=== PATIENT | male | born 1950 | race Caucasian/White ===

== ENCOUNTER 2017-11-05 13:06 | Emergency (ER) | payer MEDICARE, OTHER ==
[2017-11-05] MEDS ORDERED: Ondansetron 4 MG/2 ML SDV IVPUSH ONE (14:32)
[2017-11-05] MEDS ORDERED: Sodium Chloride 0.9% 10 ML Syringe FLUSH PRN ×2 (14:32→16:00)
[2017-11-05] MEDS ORDERED: Morphine 2 MG/ML Syringe IVPUSH ONE (14:32)
[2017-11-05] MEDS ORDERED: diphenhydrAMINE 50 MG/ML SDV IVPUSH ONE (15:35)
--- NOTE | 2017-11-05 15:46 | EDM.PDOC ---
ED HPI GENERAL MEDICAL PROBLEM - General Chief Complaint: Abdominal Pain Stated Complaint: ABDOMINAL PAIN Time Seen by Provider: 11/05/17 14:36 Source of Information: Reports: Patient History Limitations: Reports: No Limitations - History of Present Illness INITIAL COMMENTS - FREE TEXT/NARRATIVE: 67-year-old male presents for evaluation and treatment of lower abdominal pain. Patient reports that the abdominal pain began today after having a bowel movement. States the pain is located in the lower abdomen. Describes it as a sharp crampy sensation. Reports he's had some diarrhea today. No fevers, chills , nausea, vomiting, melena or hematochezia. No urinary symptoms. States she's never had anything like this before. Patient reports he has had a colonoscopy, however has been several years. patient reports he is started on a prednisone taper last week for psoriasis to his bilateral hands and legs. He was started on 40 mg daily for 1 week. He has now started 30 mg daily this week. 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 11/05/17 [Rx] Prednisone [IJD: predniSONE] 30 mg PO DAILY 11/05/17 [History] Hydrocodone/Acetaminophen [Hydrocodon-Acetaminophen 5-325] 1 - 2 each PO Q6HR PRN #20 tablet 11/07/17 [Rx] Ondansetron [Zofran ODT] 4 mg PO Q6H PRN #20 tab.dis 11/07/17 [Rx] Past Medical History Musculoskeletal History: Reports: Other (See Below) Other Musculoskeletal History: low back surgery involving removing discs - Infectious Disease History Infectious Disease History: Reports: Hepatitis C Other Infectious Disease History: went thru treatment a number of years ago Social & Family History - Tobacco Use Smoking Status *Q: Former Smoker Used Tobacco, but Quit: Yes Month Tobacco Last Used: 1968 - Caffeine Use Caffeine Use: Reports: Coffee, Tea - Recreational Drug Use Recreational Drug Use: No Recreational Drug Type: Reports: Marijuana/Hashish Other Recreational Drug Type: daily ED ROS GENERAL - Review of Systems Review Of Systems: See Below Constitutional: Denies: Fever, Decreased Appetite GI/Abdominal: Reports: Abdominal Pain. Denies: Nausea, Vomiting : Reports: No Symptoms. Denies: Dysuria, Hematuria ED EXAM, GI/ABD - Physical Exam Exam: See Below Exam Limited By: No Limitations General Appearance: Alert, WD/WN, No Apparent Distress Respiratory/Chest: No Respiratory Distress, Lungs Clear, Normal Breath Sounds Cardiovascular: Normal Peripheral Pulses, Regular Rate, Rhythm, No Murmur GI/Abdominal Exam: Normal Bowel Sounds, Soft, Non-Tender Neurological: Alert, Oriented, Normal Cognition Psychiatric: Normal Affect, Normal Mood Skin Exam: Warm, Dry, Normal Color Course - Vital Signs Last Recorded V/S: Last Vital Signs Temp 35.7 C 11/05/17 13:24 Pulse 49 L 11/05/17 13:24 Resp 20 11/05/17 13:24 BP 157/91 H 11/05/17 13:24 Pulse Ox 98 11/05/17 13:24 - Orders/Labs/Meds Labs: Laboratory Tests 11/05/17 11/05/17 11/05/17 Range/Units 14:55 14:55 17:46 WBC 14.85 H (4.23-9.07) K/mm3 RBC 4.36 L (4.63-6.08) M/mm3 Hgb 13.1 L (13.7-17.5) gm/L Hct 38.7 L (40.1-51.0) % MCV 88.8 (79.0-92.2) fl MCH 30.0 (25.7-32.2) pg MCHC 33.9 (32.2-35.5) g/dl RDW Std Deviation 41.1 (35.1-43.9) fL Plt Count 321 (163-337) K/mm3 MPV 9.7 (9.4-12.3) fl Neutrophils % (Manual) 77 H (40-60) % Band Neutrophils % 1 (0-10) % Lymphocytes % (Manual) 18 L (20-40) % Atypical Lymphs % 0 % Monocytes % (Manual) 4 (2-10) % Eosinophils % (Manual) 0 L (0.8-7.0) % Basophils % (Manual) 0 L (0.2-1.2) Hypersegmented Neuts Few Platelet Estimate Adequate RBC Morph Comment Normal Sodium 138 (136-145) mEq/L Potassium 3.2 L (3.5-5.1) mEq/L Chloride 101 (98-107) mEq/L Carbon Dioxide 26 (21-32) mEq/L Anion Gap 14.2 (5-15) BUN 10 (7-18) mg/dL Creatinine 1.1 (0.7-1.3) mg/dL Est Cr Clr Drug Dosing 70.55 mL/min Estimated GFR (MDRD) > 60 (>60) mL/min BUN/Creatinine Ratio 9.1 L (14-18) Glucose 120 H (80-115) mg/dL Calcium 9.1 (8.5-10.1) mg/dL Total Bilirubin 0.8 (0.2-1.0) mg/dL AST 17 (15-37) U/L ALT 21 (16-63) U/L Alkaline Phosphatase 47 (46-116) U/L C-Reactive Protein 0.2 (<1.0) mg/dL Total Protein 7.2 (6.4-8.2) g/dl Albumin 4.1 (3.4-5.0) g/dl Globulin 3.1 gm/dL Albumin/Globulin Ratio 1.3 (1-2) Lipase 162 (73-393) U/L Urine Color Yellow (Yellow) Urine Appearance Clear (Clear) Urine pH 8.0 (5.0-8.0) Ur Specific [place] 1.015 (1.005-1.030) Urine Protein Negative (Negative) Urine Glucose (UA) Negative (Negative) Urine Ketones Negative (Negative) Urine Occult Blood Negative (Negative) Urine Nitrite Negative (Negative) Urine Bilirubin Negative (Negative) Urine Urobilinogen 0.2 (0.2-1.0) Ur Leukocyte Esterase Negative (Negative) Urine RBC Not seen (0-5) /hpf Urine WBC Not seen (0-5) /hpf Ur Epithelial Cells Not seen (0-5) /hpf Urine Bacteria Not seen (FEW) /hpf Urine Mucus Not seen (FEW) /hpf Meds: Medications Discontinued Medications Generic Name Dose Route Start Last Admin Trade Name Freq PRN Reason Stop Dose Admin Al Hydroxide/Mg Hydroxide 30 0 ml 11/05/17 17:35 11/05/17 17:42 ml/ Lidocaine HCl 15 ml PO 11/05/17 17:36 45 ml ONETIME ONE Administration Diatrizoate Meglum/Diatrizoate Sod 90 ml 11/05/17 16:00 11/05/17 16:13 Gastrografin 37% PO 11/05/17 16:01 90 ml ONETIME ONE Administration Diphenhydramine HCl 25 mg 11/05/17 15:35 11/05/17 15:45 Benadryl IVPUSH 11/05/17 15:36 25 mg ONETIME ONE Administration Iopamidol 125 ml 11/05/17 16:00 11/05/17 16:14 Isovue-300 (61%) IVPUSH 11/05/17 16:01 125 ml ONETIME ONE Administration Morphine Sulfate 2 mg 11/05/17 14:32 11/05/17 15:00 Morphine IVPUSH 11/05/17 14:33 2 mg ONETIME ONE Administration Ondansetron HCl 4 mg 11/05/17 14:32 11/05/17 14:58 Zofran IVPUSH 11/05/17 14:33 4 mg ONETIME ONE Administration Pantoprazole Sodium 40 mg 11/05/17 17:35 11/05/17 17:41 Protonix Iv IVPUSH 11/05/17 17:36 40 mg ONETIME ONE Administration Sodium Chloride 10 ml 11/05/17 14:32 11/05/17 15:02 Saline Flush FLUSH 10 ml ASDIRECTED PRN Administration Keep Vein Open Sodium Chloride 10 ml 11/05/17 16:00 11/05/17 16:15 Saline Flush FLUSH 10 ml ONETIME PRN Administration IV FLUSH - Radiology Interpretation Free Text/Narrative:: CT abdomen and pelvis with contrast impression per [facility]: No definitive acute abnormality seen to account for symptoms. No significant changes noted from prior exam. - Re-Assessments/Exams Free Text/Narrative Re-Assessment/Exam: 11/05/17 17:29 I discussed the labs and imaging with the patient. Elevated white blood cell count likely from his prednisone he is on. I feel He is likely experiencing side effects from the prednisone. I will put him on some omeprazole for suspected gastritis due to prednisone. Discussed stopping the prednisone. He is currently on a taper. He would like to stay and at that time as this helped with the psoriasis. Will try him with some omeprazole. Discharge instructions as documented. Departure - Departure Time of Disposition: 17:36 Disposition: Home, Self-Care 01 Condition: Fair Clinical Impression: Gastritis Qualifiers: Gastritis type: unspecified gastritis Chronicity: acute Gastritis bleeding: without bleeding Qualified Code(s): K29.00 - Acute gastritis without bleeding - Discharge Information Prescriptions: Pantoprazole Sodium [Protonix] 40 mg PO DAILY #30 tablet.dr Instructions: Gastritis, Adult, [id number] Referrals: Lori Mensah NP [Primary Care Provider] - Forms: ED Department Discharge Additional Instructions: take the Protonix daily. Continuing on your prednisone taper as prescribed. Avoid ibuprofen, Aleve, NSAIDs at this time. Follow up with your primary care provider next week for recheck of your symptoms. Avoid spicy foods and alcohol. Please return to the ER if your symptoms change or worsen.
[2017-11-05] MEDS ORDERED: Diatrizoate Meglumine/Diatrizoate Sodium 37% 120 ML Bottle PO ONE (16:00)
[2017-11-05] MEDS ORDERED: Iopamidol 612 MG/ML 150 ML Bottle IVPUSH ONE (16:00)
[2017-11-05] MEDS ORDERED: Alum Hydrox/Mag Hydrox/Simeth 30 ML, Lidocaine 2% 15 ML PO ONE ×2 (17:35)
[2017-11-05] MEDS ORDERED: Pantoprazole 40 MG Vial IVPUSH ONE (17:35)
--- NOTE | 2017-11-06 08:52 | CT ---
CT abdomen and pelvis Technique: Multiple axial sections were obtained from above the dome of the diaphragm inferiorly through the pubic symphysis. Intravenous and oral contrast was utilized. Delayed images were obtained through the bladder. Comparison: Prior CT abdomen and pelvis exam of 07/21/12. Findings: Visualized lung bases show slight scarring and atelectasis. Liver shows no focal parenchymal abnormality. Spleen appears within normal limits. Adrenal glands show no nodule. Pancreas is within normal limits. Gallbladder contains no calcified gallstones. Kidneys show symmetric contrast enhancement without hydronephrosis or mass. Two cysts are identified within the right kidney. Largest cyst measures approximately 3.6 cm in size. Aorta shows atherosclerotic change and mild ectasia. No focal aneurysm is seen. No retroperitoneal adenopathy or mesenteric abnormalities are seen. No pelvic mass or adenopathy is identified. Delayed images show contrast within the distal ureters and within the bladder. Bone window settings were reviewed which show scattered degenerative change within the spine most prominent at L5-S1. Impression: 1. Incidental findings. Nothing acute is appreciated on CT study of the abdomen and pelvis. Diagnostic code #2 I agree with preliminary report issued by [facility] ([facility] report finalized on 11/05/17, 5:37 PM Central Time)
== END 2017-11-05 18:10 | disposition home or self-care (01) ==
LOC: JD.ED 13:06
DX: K29.00 Acute gastritis without bleeding (principal); Z91.013 Allergy to seafood; Z79.899 Other long term (current) drug therapy; Z87.891 Personal history of nicotine dependence
CPT/HCPCS: 36415; 74177; 80053; 81001; 83690; 85025; 86140; 96374; 96375; 99284; A9270; C9113; J1200; J2270; J2405; J7050; Q9963; Q9967

== ENCOUNTER 2017-11-07 08:16 | Emergency (ER) | payer MEDICARE, OTHER ==
[2017-11-07] MEDS ORDERED: Sodium Chloride 0.9% 1,000 ML IV STA (08:50)
[2017-11-07] MEDS ORDERED: Metoclopramide 10 MG/2 ML SDV IVPUSH ONE (08:50)
[2017-11-07] MEDS ORDERED: Sodium Chloride 0.9% 10 ML Syringe FLUSH PRN (08:50)
[2017-11-07] MEDS ORDERED: Alum Hydrox/Mag Hydrox/Simeth 30 ML, Lidocaine 2% 15 ML PO ONE ×2 (08:51)
[2017-11-07] MEDS ORDERED: Famotidine 20 MG/2 ML SDV IVPUSH ONE (08:51)
[2017-11-07] MEDS ORDERED: fentaNYL 100 MCG/2 ML SDV IVPUSH ONE (08:52)
--- NOTE | 2017-11-07 09:30 | EDM.PDOC ---
ED HPI GENERAL MEDICAL PROBLEM - General Chief Complaint: Abdominal Pain Stated Complaint: ABDOMINAL PAIN Time Seen by Provider: 11/07/17 08:39 Source of Information: Reports: Patient History Limitations: Reports: No Limitations - History of Present Illness INITIAL COMMENTS - FREE TEXT/NARRATIVE: The patient presents with generalized abdominal pain. This started last week. He is on prednisone for a psoriasis. He started that last week. The abdominal pain started after that. He had a bowel movement on and it was diarrhea. He has nausea but no vomiting. He can eat but not much. He feels full and wonders if he is constipated now. He was seen here a few days ago. His WBC was elevated and he had a CT done that did not show any problems. He has no fever, chills, cough, chest pain, shortness of breath and dysuria. He still has his appendix and gallbladder. Onset: Gradual Duration: Week(s): (1) Location: Reports: Abdomen Quality: Reports: Ache Severity: Moderate Improves with: Reports: None Worsens with: Reports: None Associated Symptoms: Reports: Nausea/Vomiting. Denies: Chest Pain, Cough, Fever /Chills, Headaches, Shortness of Breath Abdominal Pain Score (Numeric/FACES): 5 - Related Data Allergies Allergy/AdvReac Type Severity Reaction Status Date / Time shellfish derived AdvReac Vomiting Verified 11/07/17 08:22 Home Meds: Home Meds Pantoprazole Sodium [Protonix] 40 mg PO DAILY #30 tablet. 11/05/17 [Rx] Prednisone [IJD: predniSONE] 30 mg PO DAILY 11/05/17 [History] Hydrocodone/Acetaminophen [Hydrocodon-Acetaminophen 5-325] 1 - 2 each PO Q6HR PRN #20 tablet 11/07/17 [Rx] Ondansetron [Zofran ODT] 4 mg PO Q6H PRN #20 tab.dis 11/07/17 [Rx] Past Medical History Musculoskeletal History: Reports: Other (See Below) Other Musculoskeletal History: low back surgery involving removing discs Dermatologic History: Reports: Psoriasis - Infectious Disease History Infectious Disease History: Reports: Hepatitis C Other Infectious Disease History: went thru treatment a number of years ago Social & Family History - Tobacco Use Smoking Status *Q: Former Smoker Used Tobacco, but Quit: No Month Tobacco Last Used: 1968 - Caffeine Use Caffeine Use: Reports: Coffee, Tea - Recreational Drug Use Recreational Drug Use: Yes Drug Use in Last 12 Months: Yes Recreational Drug Type: Reports: Marijuana/Hashish Other Recreational Drug Type: daily ED ROS GENERAL - Review of Systems Review Of Systems: See Below Constitutional: Reports: No Symptoms HEENT: Reports: No Symptoms Respiratory: Reports: No Symptoms Cardiovascular: Reports: No Symptoms Endocrine: Reports: No Symptoms GI/Abdominal: Reports: Abdominal Pain, Nausea, Vomiting. Denies: Diarrhea : Reports: No Symptoms Musculoskeletal: Reports: No Symptoms Skin: Reports: No Symptoms ED EXAM, GI/ABD - Physical Exam Exam: See Below Exam Limited By: No Limitations General Appearance: Alert, No Apparent Distress Ears: Normal External Exam Nose: Normal Inspection Head: Atraumatic, Normocephalic Neck: Normal Inspection Respiratory/Chest: No Respiratory Distress, Lungs Clear, Normal Breath Sounds Cardiovascular: Regular Rate, Rhythm, No Edema, No Murmur GI/Abdominal Exam: Soft, No Organomegaly, No Mass, Tender (Slight tenderness to the mid abdomen) Course - Vital Signs Last Recorded V/S: Last Vital Signs Temp 97.8 F 11/07/17 08:23 Pulse 79 11/07/17 08:23 Resp 20 11/07/17 08:23 BP 149/99 H 11/07/17 08:23 Pulse Ox 99 11/07/17 08:23 - Orders/Labs/Meds Orders: Active Orders 24 hr Category Date Time Status Peripheral IV Care [RC] . DIRECTED Care 11/07/17 08:50 Active Abdomen Series w Chest 1V [CR] Stat Exams 11/07/17 08:50 Taken Sodium Chloride 0.9% [Saline Flush] Med 11/07/17 08:50 Active 10 ml FLUSH ASDIRECTED PRN ED Antiemetic Medication Reflex [OM.PC] Stat Oth 11/07/17 08:50 Ordered Peripheral IV Insertion Adult [OM.PC] Stat Oth 11/07/17 08:50 Ordered Medication Orders Sodium Chloride (Saline Flush) 10 ml FLUSH ASDIRECTED PRN PRN Reason: Keep Vein Open Last Admin: 11/07/17 09:07 Dose: 10 ml Labs: Laboratory Tests 11/07/17 11/07/17 11/07/17 Range/Units 08:30 08:30 09:15 WBC 12.88 H (4.23-9.07) K/mm3 RBC 4.66 (4.63-6.08) M/mm3 Hgb 13.9 (13.7-17.5) gm/L Hct 40.7 (40.1-51.0) % MCV 87.3 (79.0-92.2) fl MCH 29.8 (25.7-32.2) pg MCHC 34.2 (32.2-35.5) g/dl RDW Std Deviation 40.3 (35.1-43.9) fL Plt Count 361 H (163-337) K/mm3 MPV 10.2 (9.4-12.3) fl Neut % (Auto) 74.3 H (34.0-67.9) % Lymph % (Auto) 15.6 L (21.8-53.1) % [place] % (Auto) 9.7 (5.3-12.2) % Eos % (Auto) 0.2 L (0.8-7.0) Baso % (Auto) 0.0 L (0.1-1.2) % Neut # (Auto) 9.56 H (1.78-5.38) K/mm3 Lymph # (Auto) 2.01 (1.32-3.57) K/mm3 [place] # (Auto) 1.25 H (0.30-0.82) K/mm3 Eos # (Auto) 0.03 L (0.04-0.54) K/mm3 Baso # (Auto) 0.00 L (0.01-0.08) K/mm3 Sodium 135 L (136-145) mEq/L Potassium 3.6 (3.5-5.1) mEq/L Chloride 97 L (98-107) mEq/L Carbon Dioxide 27 (21-32) mEq/L Anion Gap 14.6 (5-15) BUN 9 (7-18) mg/dL Creatinine 1.0 (0.7-1.3) mg/dL Est Cr Clr Drug Dosing 77.60 mL/min Estimated GFR (MDRD) > 60 (>60) mL/min BUN/Creatinine Ratio 9.0 L (14-18) Glucose 137 H (80-115) mg/dL Calcium 9.3 (8.5-10.1) mg/dL Total Bilirubin 0.9 (0.2-1.0) mg/dL AST 11 L (15-37) U/L ALT 24 (16-63) U/L Alkaline Phosphatase 49 (46-116) U/L Total Protein 7.7 (6.4-8.2) g/dl Albumin 4.4 (3.4-5.0) g/dl Globulin 3.3 gm/dL Albumin/Globulin Ratio 1.3 (1-2) Lipase 402 H (73-393) U/L Urine Color Yellow (Yellow) Urine Appearance Slt cloudy H (Clear) Urine pH 8.5 H (5.0-8.0) Ur Specific [place] 1.020 (1.005-1.030) Urine Protein 1+ H (Negative) Urine Glucose (UA) Negative (Negative) Urine Ketones 2+ H (Negative) Urine Occult Blood Negative (Negative) Urine Nitrite Negative (Negative) Urine Bilirubin Negative (Negative) Urine Urobilinogen 0.2 (0.2-1.0) Ur Leukocyte Esterase Negative (Negative) Urine RBC Not seen (0-5) /hpf Urine WBC Not seen (0-5) /hpf Ur Epithelial Cells Not seen (0-5) /hpf Urine Bacteria Not seen (FEW) /hpf Urine Mucus Not seen (FEW) /hpf Meds: Medications Generic Name Dose Route Start Last Admin Trade Name Freq PRN Reason Stop Dose Admin Sodium Chloride 10 ml 11/07/17 08:50 11/07/17 09:07 Saline Flush FLUSH 10 ml ASDIRECTED PRN Administration Keep Vein Open Discontinued Medications Generic Name Dose Route Start Last Admin Trade Name Freq PRN Reason Stop Dose Admin Al Hydroxide/Mg Hydroxide 30 0 ml 11/07/17 08:51 11/07/17 09:50 ml/ Lidocaine HCl 15 ml PO 11/07/17 08:52 45 ml ONETIME ONE Administration Famotidine 20 mg 11/07/17 08:51 11/07/17 09:09 Pepcid IVPUSH 11/07/17 08:52 20 mg ONETIME ONE Administration Fentanyl 50 mcg 11/07/17 08:52 11/07/17 09:19 Sublimaze IVPUSH 11/07/17 08:53 50 mcg ONETIME ONE Administration Sodium Chloride 1,000 mls @ 1,000 mls/hr 11/07/17 08:50 11/07/17 09:00 Normal Saline IV 11/07/17 09:49 1,000 mls/hr .BOLUS STA Administration Magnesium Citrate 100 ml 11/07/17 10:04 Citrate Of Magnesia PO 11/07/17 10:05 ONETIME ONE Metoclopramide HCl 10 mg 11/07/17 08:50 11/07/17 09:03 Reglan IVPUSH 11/07/17 08:51 10 mg ONETIME ONE Administration - Re-Assessments/Exams Free Text/Narrative Re-Assessment/Exam: 11/07/17 09:30 I ordered an IV NS 1L bolus, reglan 10mg IV, fentanyl 50mcg IV, pepcid 20mg IV, GI cocktail, labs, UA and an x-ray of his chest and abdomen. 11/07/17 10:10 His WBC is improved to 12.88. This elevation is from the steroids. His Na is a little low at 135. His glucose is elevated at 137. His lipase was elevated at 402. Yesterday his lipase was negative. His UA looks good. His x-ray shows stool in the right hemicolon but very little on the left side. I feel he is having pancreatitis from the steroids and gastritis. His psoriasis is better. I will need to stop the prednisone. He is 10 days out and that should be safe to stop. I will also get him on some pepcid to help with his stomach and something for pain. I will also have him do a clear diet today and advance as tolerated. Departure - Departure Time of Disposition: 10:15 Disposition: Home, Self-Care 01 Condition: Good Clinical Impression: Gastritis Qualifiers: Gastritis type: unspecified gastritis Chronicity: acute Gastritis bleeding: without bleeding Qualified Code(s): K29.00 - Acute gastritis without bleeding Pancreatitis Qualifiers: Chronicity: acute Pancreatitis type: drug induced Acute pancreatitis complication: no infection or necrosis Qualified Code(s): K85.30 - Drug induced acute pancreatitis without necrosis or infection Constipation Qualifiers: Constipation type: other constipation type Qualified Code(s): K59.09 - Other constipation - Discharge Information Prescriptions: Hydrocodone/Acetaminophen [Hydrocodon-Acetaminophen 5-325] 1 - 2 each PO Q6HR PRN #20 tablet PRN Reason: Pain Ondansetron [Zofran ODT] 4 mg PO Q6H PRN #20 tab.dis PRN Reason: Nausea\vomiting Referrals: PCP,None [Primary Care Provider] - Lori Mensah NP [Ordering Only Provider] - 1 Week Modesto Paez MD [Ordering Only Provider] - 2 Weeks Forms: ED Department Discharge Additional Instructions: Stop the prednisone. Take pepcid 20mg daily for 1 week. Take the hydrocodone 1 to 2 pills every 6 hours as needed for pain. Take the zofran every 6 hours as needed for nausea or vomiting. Start with a clear liquid diet today. The clear liquid diet includes, sprite, LeQruix, water, broth and clear jello. Advance your diet as tolerated tomorrow. Follow up with Any Mensah this next week and Dr Paez a counseling center director in [place] in a couple weeks. Please return if you are worse such as more pain, nausea, vomiting or if you are not feeling well. We gave you a dose of magnesium citrate. If you do not have a bowel movement by this afternoon you can have a dose. Drink plenty of water. - My Orders Last 24 Hours: My Active Orders 11/07/17 08:50 Peripheral IV Care [RC] . DIRECTED Abdomen Series w Chest 1V [CR] Stat Sodium Chloride 0.9% [Saline Flush] 10 ml FLUSH ASDIRECTED PRN ED Antiemetic Medication Reflex [OM.PC] Stat Peripheral IV Insertion Adult [OM.PC] Stat - Assessment/Plan Last 24 Hours: My Active Orders 11/07/17 08:50 Peripheral IV Care [RC] . DIRECTED Abdomen Series w Chest 1V [CR] Stat Sodium Chloride 0.9% [Saline Flush] 10 ml FLUSH ASDIRECTED PRN ED Antiemetic Medication Reflex [OM.PC] Stat Peripheral IV Insertion Adult [OM.PC] Stat
[2017-11-07] MEDS ORDERED: Magnesium Citrate Solution 296 ML Bottle PO ONE (10:04)
--- NOTE | 2017-11-07 14:23 | CR ---
Abdominal series: Supine and upright views of the abdomen were obtained as well as frontal view of the chest. Comparison: No prior abdominal or chest x-ray, previous CT abdomen and pelvis exam of 11/05/17. Heart size is normal. Tortuous thoracic aorta is seen. Lungs are clear. Small amount of contrast is noted within the colon. Bowel gas pattern appears normal in appearance. Calcifications are seen within the pelvis which are compatible with phleboliths. No free air is identified. Scoliosis is noted within the spine with minimal degenerative change. Impression: 1. Incidental findings. Nothing acute is identified. Diagnostic code #2
== END 2017-11-07 10:35 | disposition home or self-care (01) ==
LOC: JD.ED 08:16
DX: K29.00 Acute gastritis without bleeding (principal); K85.30 Drug induced acute pancreatitis without necrosis or infection; K59.09 Other constipation; Z87.891 Personal history of nicotine dependence; Z79.899 Other long term (current) drug therapy; Z91.013 Allergy to seafood
CPT/HCPCS: 36415; 74022; 80053; 81001; 83690; 85025; 96361; 96374; 96375; 99284; A9270; J2765; J3010; J7040; J7050